=== PATIENT | female | born 1950 | race African-American/Black ===

== ENCOUNTER 2021-05-09 15:29 | Inpatient (IN) ==
[2021-05-09 16:19] LABS: Basophils % 0.5 % (0.0-0.8); Eosinophils # 0.1 10*3/uL (0.0-0.87); Eosinophils % 0.6 % (0.00-10.9); Hemoglobin 11.6 GM/DL (12.0-16.0); Immature Granulocytes % 1.6 %; Immature Granulocytes Absolute 0.14 #; Lymphocytes # 1.2 10*3/uL (1.4-4.0); Lymphocytes % 13.7 % (21.3-54.2); Mean Corpuscular HGB Conc 31.4 GM/DL (32-36); Mean Corpuscular Volume 91.4 FL (87-102); Mean Platelet Volume 10.7 FL (9.6-12.0); Monocytes % 6.7 % (1.7-12.7); Neutrophils % 76.9 % (38.7-73.9); Platelet Count 358 T/CUMM (130-400); Red Blood Count 4.05 MC/CUMM (3.8-5.5); Red Cell Distribution Width 14.2 % (9.3-17.3); White Blood Count 8.9 T/CUMM (4-12)
[2021-05-09 16:35] LABS: Alanine Aminotransferase 51 U/L (13-56); Albumin 2.2 G/DL (3.4-5.0); Alkaline Phosphatase 115 U/L (45-117); Aspartate Amino Transferase 61 U/L (0-37); Blood Urea Nitrogen 7 MG/DL (7-18); Calcium 8.9 MG/DL (8.5-10.1); Carbon Dioxide 26 MMOL/L (21-32); Estimated Glom Filtration Rate 84 ML/MIN; Glucose 134 MG/DL (74-106); Sodium 150 MMOL/L (136-145)
[2021-05-09 17:16] LABS: Bacteria,Urine Many /HPF (Few); Bilirubin,Urine Negative (Negative); Blood, Urine Small mg/dL (Negative); Glucose,Urine (UA) Negative (Negative); Hyaline Casts,Urine 18 /LPF (0-3); Ketones,Urine Negative (Negative); Mucus,Urine Many /LPF (Occasional); Nitrite,Urine Positive (Negative); Protein,Urine 30 MG/DL; RBC,Urine 5 /HPF (0-4); Urine Appearance CLOUDY (Clear); Urine Color Amber (Yellow); Urine Specific Gravity 1.019 (1.001-1.035); Urine Urobilinogen < 2.0 EU/DL (0.2-1.0)
[2021-05-09] MEDS ORDERED: SODIUM CHLORIDE 0.9% 1,850 ML IV ONE (17:34)
[2021-05-09] MEDS ORDERED: VANCOMYCIN INJ 1,000 MG in SODIUM CHLORIDE 0.9% 250 ML IV SCH (18:00)
[2021-05-09] MEDS ORDERED: GLUCAGON 1 MG VIAL IM PRN (18:08)
[2021-05-09] MEDS ORDERED: DEXTROSE 50% 25 GM/50 ML VIAL IV PRN (18:08)
[2021-05-09] MEDS ORDERED: ACETAMINOPHEN 325 MG TABLET PO PRN (18:08)
[2021-05-09] MEDS ORDERED: hydrALAZINE 20 MG/1 ML VIAL IV PRN (18:08)
[2021-05-09] MEDS ORDERED: DOCUSATE SODIUM 100 MG CAPSULE PO PRN (18:08)
[2021-05-09] MEDS ORDERED: ALBUTEROL 2.5 MG/3 ML NEB RESP TX PRN (18:08)
[2021-05-09] MEDS ORDERED: ONDANSETRON 4 MG/2 ML VIAL IV PRN (18:08)
[2021-05-09] MEDS: VANCOMYCIN INJ 1,000 MG in SODIUM CHLORIDE 0.9% 250 ML IV SCH (18:10)
[2021-05-09] MEDS ORDERED: MAGNESIUM SULF RIDER 2 GM/50 ML PREMIX IV PRN (18:19)
[2021-05-09] MEDS ORDERED: MAGNESIUM SULF RIDER 4 GM/100 ML PREMIX IV PRN (18:19)
[2021-05-09] MEDS ORDERED: POTASSIUM CHLORIDE INJ 20 MEQ in SODIUM CHLORIDE 0.45% 1,000 ML IV SCH (18:30)
[2021-05-09] MEDS: PIPERACILLIN/TAZOBACTAM 3,375 MG in SODIUM CHLORIDE 0.9% 100 ML IV SCH (19:42)
[2021-05-09] MEDS: ATORVASTATIN 40 MG TABLET PO SCH (21:04)
[2021-05-09] MEDS: MEMANTINE 10 MG TABLET PO SCH (21:04)
[2021-05-10] MEDS ORDERED: SODIUM CHLOR 0.45% KCL 20 MEQ 20 MEQ/1,000 ML BAG IV SCH (02:30)
[2021-05-10] MEDS: PIPERACILLIN/TAZOBACTAM 3,375 MG in SODIUM CHLORIDE 0.9% 100 ML IV SCH ×3 (04:16→18:28)
[2021-05-10 04:20] LABS: Basophils % 0.3 % (0.0-0.8); Eosinophils # 0.1 10*3/uL (0.0-0.87); Eosinophils % 1.8 % (0.00-10.9); Hematocrit 31.7 VOL% (35.7-47.0); Immature Granulocytes % 1.7 %; Lymphocytes # 1.2 10*3/uL (1.4-4.0); Lymphocytes % 19.2 % (21.3-54.2); Mean Corpuscular HGB Conc 31.5 GM/DL (32-36); Mean Corpuscular Volume 91.4 FL (87-102); Mean Platelet Volume 10.1 FL (9.6-12.0); Platelet Count 304 T/CUMM (130-400); Red Blood Count 3.47 MC/CUMM (3.8-5.5); Red Cell Distribution Width 14.5 % (9.3-17.3)
[2021-05-10 04:45] LABS: Calcium 7.9 MG/DL (8.5-10.1); Osmolality,Calculated 301.4 MOS/KG (273-304); Potassium 3.2 MMOL/L (3.5-5.1)
[2021-05-10 05:27] LABS: Risk Ratio 3.47; Thyroid Stimulating Hormone 1.04 uIU/ml (0.358-3.74); VLDL Cholesterol 15.6 MG/DL
[2021-05-10] MEDS: VANCOMYCIN INJ 1,000 MG in SODIUM CHLORIDE 0.9% 250 ML IV SCH ×2 (06:00→17:19)
[2021-05-10] MEDS ORDERED: POTASSIUM CHLORIDE INJ 30 MEQ in DEXTROSE 5% LACTATED RINGERS 1,000 ML IV SCH (07:00)
[2021-05-10] MEDS: DEXTROSE 5% 1,000 ML IV SCH (10:26)
[2021-05-10] MEDS: MEMANTINE 10 MG TABLET PO SCH ×2 (11:00→20:24)
[2021-05-10] MEDS: PANTOPRAZOLE 40 MG TABLET PO SCH (11:00)
[2021-05-10 13:38] LABS: Calcium 8.6 MG/DL (8.5-10.1); Potassium 3.1 MMOL/L (3.5-5.1)
[2021-05-10] MEDS: SILVER SULFADIAZINE 1% CREAM 25 GM TUBE TOP SCH (14:47)
[2021-05-10 19:14] LABS: Calcium 8.5 MG/DL (8.5-10.1); Osmolality,Calculated 288.4 MOS/KG (273-304)
[2021-05-10] MEDS: ATORVASTATIN 40 MG TABLET PO SCH (20:25)
[2021-05-11 01:21] LABS: Basophils % 0.3 % (0.0-0.8); Eosinophils # 0.1 10*3/uL (0.0-0.87); Eosinophils % 1.4 % (0.00-10.9); Hematocrit 32.4 VOL% (35.7-47.0); Hemoglobin 10.1 GM/DL (12.0-16.0); Immature Granulocytes Absolute 0.15 #; Lymphocytes # 1.3 10*3/uL (1.4-4.0); Lymphocytes % 17.3 % (21.3-54.2); Mean Corpuscular HGB Conc 31.2 GM/DL (32-36); Mean Corpuscular Volume 90.5 FL (87-102); Monocytes % 6.2 % (1.7-12.7); Neutrophils % 72.8 % (38.7-73.9); Platelet Count 312 T/CUMM (130-400); Red Blood Count 3.58 MC/CUMM (3.8-5.5); Red Cell Distribution Width 14.3 % (9.3-17.3); White Blood Count 7.6 T/CUMM (4-12)
[2021-05-11 01:49] LABS: Calcium 8.3 MG/DL (8.5-10.1); Osmolality,Calculated 285.7 MOS/KG (273-304); Potassium 2.7 MMOL/L (3.5-5.1)
[2021-05-11] MEDS: PIPERACILLIN/TAZOBACTAM 3,375 MG in SODIUM CHLORIDE 0.9% 100 ML IV SCH ×2 (02:09→10:06)
[2021-05-11] MEDS: DEXTROSE 5% 1,000 ML IV SCH ×2 (05:56→10:06)
[2021-05-11] MEDS: VANCOMYCIN INJ 1,000 MG in SODIUM CHLORIDE 0.9% 250 ML IV SCH (06:19)
[2021-05-11 07:45] LABS: Calcium 8.2 MG/DL (8.5-10.1); Osmolality,Calculated 288.4 MOS/KG (273-304); Potassium 2.8 MMOL/L (3.5-5.1)
[2021-05-11] MEDS: MEMANTINE 10 MG TABLET PO SCH (08:18)
[2021-05-11] MEDS: PANTOPRAZOLE 40 MG TABLET PO SCH (08:18)
[2021-05-11] MEDS: SILVER SULFADIAZINE 1% CREAM 25 GM TUBE TOP SCH (08:42)
[2021-05-11] MEDS ORDERED: POTASSIUM CHLORIDE 20 MEQ TABLET PO ONE ×2 (09:00→11:00)
[2021-05-11 15:34] VITALS: BP 115/59
[2021-05-11] MEDS ORDERED: cefTRIAXone 1,000 MG in SODIUM CHLORIDE 0.9% 100 ML IV SCH (17:00)
[2021-05-11] MEDS ORDERED: CIPROFLOXACIN 500 MG TABLET PO SCH (21:00)
== END 2021-05-11 15:50 | DRG 299 ==
LOC: EDUNIT# → EDBD → N.ED 15:29 → N.EDINP 18:08 → SUATTDRO 18:08 → N.EDINP 05-10 08:45 → N.5E 05-10 09:31
PROVIDERS: ADMIT Internal Medicine; ATTEND Internal Medicine

== ENCOUNTER 2021-05-26 09:06 | Inpatient (IN) ==
[2021-05-26 10:08] LABS: Basophils # 0.1 10*3/uL (0.0-0.2); Basophils % 0.8 % (0.0-0.8); Eosinophils % 0.2 % (0.00-10.9); Hematocrit 42.1 VOL% (35.7-47.0); Hemoglobin 12.7 GM/DL (12.0-16.0); Immature Granulocytes % 6.2 %; Immature Granulocytes Absolute 0.69 #; Lymphocytes # 2.5 10*3/uL (1.4-4.0); Lymphocytes % 22.5 % (21.3-54.2); Mean Corpuscular HGB Conc 30.2 GM/DL (32-36); Mean Corpuscular Volume 91.7 FL (87-102); Mean Platelet Volume 11.4 FL (9.6-12.0); Monocytes % 5.3 % (1.7-12.7); NRBC # 0.12 10*3/uL; Platelet Count 422 T/CUMM (130-400); Red Blood Count 4.59 MC/CUMM (3.8-5.5); Red Cell Distribution Width 15.9 % (9.3-17.3); White Blood Count 11.2 T/CUMM (4-12)
[2021-05-26 10:27] LABS: Band Neutrophils 3 % (0-10); Lymphocytes 20 % (20-55); Myelocytes 2 %; Nucleated Red Blood Cells 1 (0-5); Platelet Estimate Adequate; Segmented Neutrophils 68 % (50-85); Total Cells Counted 100
[2021-05-26 10:47] LABS: Bilirubin,Urine Small mg/dL (Negative); Blood, Urine Negative (Negative); Glucose,Urine (UA) Negative (Negative); Hyaline Casts,Urine 15 /LPF (0-3); Ketones,Urine Negative (Negative); Mucus,Urine Few /LPF (Occasional); Nitrite,Urine Negative (Negative); Protein,Urine 30 MG/DL; RBC,Urine 4 /HPF (0-4); Squamous Epithelial Cell,Urine Occasional /HPF (0-10); Urine Appearance Slightly Hazy (Clear); Urine Color Amber (Yellow); Urine Specific Gravity 1.027 (1.001-1.035); Urine Urobilinogen < 2.0 EU/DL (0.2-1.0)
[2021-05-26] MEDS ORDERED: SODIUM CHLORIDE 0.9% 1,000 ML IV STA (12:07)
[2021-05-26] MEDS ORDERED: cefTRIAXone 1,000 MG in SODIUM CHLORIDE 0.9% 100 ML IV STA (12:21)
[2021-05-26 13:28] LABS: Alanine Aminotransferase 17 U/L (13-56); Albumin 2.1 G/DL (3.4-5.0); Alkaline Phosphatase 123 U/L (45-117); Aspartate Amino Transferase 43 U/L (0-37); Bilirubin,Total < 0.39 MG/DL (0.20-1.00); Blood Urea Nitrogen 38 MG/DL (7-18); Calcium 8.4 MG/DL (8.5-10.1); Carbon Dioxide 23 MMOL/L (21-32); Estimated Glom Filtration Rate 34 ML/MIN; Glucose 120 MG/DL (74-106); Osmolality,Calculated 323.7 MOS/KG (273-304); Potassium 3.5 MMOL/L (3.5-5.1); Sodium 159 MMOL/L (136-145); Total Protein 5.9 G/DL (6.4-8.2)
[2021-05-26] MEDS ORDERED: GLUCAGON 1 MG VIAL IM PRN (13:45)
[2021-05-26] MEDS ORDERED: DEXTROSE 50% 25 GM/50 ML VIAL IV PRN (13:45)
[2021-05-26] MEDS ORDERED: ONDANSETRON 4 MG/2 ML VIAL IV PRN (13:45)
[2021-05-26] MEDS ORDERED: LACTATED RINGERS 1,000 ML IV SCH (14:00)
[2021-05-26 14:12] LABS: Folate 7.74 NG/ML (5.38-24.0)
[2021-05-26] MEDS: DEXTROSE 5% 1,000 ML IV SCH (16:23)
[2021-05-26] MEDS: MEMANTINE 5 MG TABLET PO SCH (22:16)
[2021-05-27] MEDS: DEXTROSE 5% 1,000 ML IV SCH ×3 (00:53→19:25)
[2021-05-27 02:43] LABS: Basophils # 0.1 10*3/uL (0.0-0.2); Basophils % 0.9 % (0.0-0.8); Eosinophils # 0.1 10*3/uL (0.0-0.87); Eosinophils % 1.2 % (0.00-10.9); Hematocrit 36.3 VOL% (35.7-47.0); Immature Granulocytes % 7.1 %; Lymphocytes # 1.9 10*3/uL (1.4-4.0); Lymphocytes % 19.6 % (21.3-54.2); Mean Corpuscular HGB Conc 29.8 GM/DL (32-36); Mean Corpuscular Volume 92.6 FL (87-102); Mean Platelet Volume 11.1 FL (9.6-12.0); Monocytes % 3.8 % (1.7-12.7); NRBC # 0.05 10*3/uL; Neutrophils % 67.4 % (38.7-73.9); Red Blood Count 3.92 MC/CUMM (3.8-5.5); Red Cell Distribution Width 15.9 % (9.3-17.3); White Blood Count 9.8 T/CUMM (4-12)
[2021-05-27 02:45] LABS: Hemoglobin 10.8 GM/DL (12.0-16.0); Platelet Count 293 T/CUMM (130-400)
[2021-05-27 03:08] LABS: Alanine Aminotransferase 17 U/L (13-56); Albumin 1.7 G/DL (3.4-5.0); Alkaline Phosphatase 100 U/L (45-117); Aspartate Amino Transferase 40 U/L (0-37); Bilirubin,Total < 0.39 MG/DL (0.20-1.00); Blood Urea Nitrogen 32 MG/DL (7-18); Calcium 7.9 MG/DL (8.5-10.1); Carbon Dioxide 23 MMOL/L (21-32); Estimated Glom Filtration Rate 52 ML/MIN; Glucose 161 MG/DL (74-106); Osmolality,Calculated 321.9 MOS/KG (273-304); Potassium 3.1 MMOL/L (3.5-5.1); Sodium 158 MMOL/L (136-145); Thyroid Stimulating Hormone 0.778 uIU/ml (0.358-3.74); Total Protein 5.6 G/DL (6.4-8.2)
[2021-05-27 04:07] LABS: Atypical Lymphocytes Few; Band Neutrophils 4 % (0-10); Eosinophils 1 % (0-10); Lymphocytes 20 % (20-55); Segmented Neutrophils 71 % (50-85); Total Cells Counted 100
[2021-05-27 04:08] LABS: Hypochromasia 1+; Microcytosis 1+; Platelet Estimate Normal
[2021-05-27 07:24] LABS: Basophils % 0.4 % (0.0-0.8); Eosinophils # 0.1 10*3/uL (0.0-0.87); Eosinophils % 1.1 % (0.00-10.9); Hematocrit 34.7 VOL% (35.7-47.0); Hemoglobin 10.4 GM/DL (12.0-16.0); Immature Granulocytes % 8.2 %; Immature Granulocytes Absolute 0.81 #; Lymphocytes # 1.4 10*3/uL (1.4-4.0); Lymphocytes % 14.1 % (21.3-54.2); Mean Platelet Volume 11.4 FL (9.6-12.0); NRBC # 0.05 10*3/uL; Neutrophils % 73.2 % (38.7-73.9); Platelet Count 284 T/CUMM (130-400); Red Blood Count 3.77 MC/CUMM (3.8-5.5); Red Cell Distribution Width 15.8 % (9.3-17.3); White Blood Count 9.9 T/CUMM (4-12)
[2021-05-27 07:49] LABS: Band Neutrophils 7 % (0-10); Eosinophils 1 % (0-10); Hypochromasia 1+; Lymphocytes 15 % (20-55); Microcytosis 1+; Nucleated Red Blood Cells 2 (0-5); Segmented Neutrophils 73 % (50-85); Total Cells Counted 100
[2021-05-27 07:50] LABS: Platelet Estimate Normal
[2021-05-27] MEDS ORDERED: cefTRIAXone 1,000 MG in SODIUM CHLORIDE 0.9% 100 ML IV SCH (09:00)
[2021-05-27] MEDS: MEMANTINE 5 MG TABLET PO SCH ×2 (09:37→20:29)
[2021-05-27] MEDS: POTASSIUM CHLORIDE RIDER 10 MEQ/100 ML PREMIX IV PRN ×8 (09:39→23:19)
[2021-05-28] MEDS: DEXTROSE 5% 1,000 ML IV SCH (03:19)
[2021-05-28] MEDS: POTASSIUM CHLORIDE RIDER 10 MEQ/100 ML PREMIX IV PRN ×2 (03:25→04:42)
[2021-05-28 06:13] LABS: Albumin 1.5 G/DL (3.4-5.0); Bilirubin,Total 0.4 MG/DL (0.20-1.00); Calcium 7.6 MG/DL (8.5-10.1); Osmolality,Calculated 275.8 MOS/KG (273-304); Potassium 4.1 MMOL/L (3.5-5.1); Total Protein 4.9 G/DL (6.4-8.2)
[2021-05-28] MEDS ORDERED: VANCOMYCIN INJ 1,250 MG in SODIUM CHLORIDE 0.9% 250 ML IV ONE (09:00)
[2021-05-28] MEDS ORDERED: VANCOMYCIN INJ 1,000 MG in SODIUM CHLORIDE 0.9% 250 ML IV SCH (09:00)
[2021-05-28] MEDS: MEMANTINE 5 MG TABLET PO SCH ×2 (09:37→21:26)
[2021-05-28] MEDS: PIPERACILLIN/TAZOBACTAM 3,375 MG in SODIUM CHLORIDE 0.9% 100 ML IV SCH ×2 (11:00→16:54)
[2021-05-28] MEDS: VANCOMYCIN INJ 750 MG in SODIUM CHLORIDE 0.9% 250 ML IV SCH (21:26)
[2021-05-29] MEDS: PIPERACILLIN/TAZOBACTAM 3,375 MG in SODIUM CHLORIDE 0.9% 100 ML IV SCH (01:27)
[2021-05-29 01:43] LABS: Basophils # 0.1 10*3/uL (0.0-0.2); Basophils % 0.7 % (0.0-0.8); Eosinophils # 0.1 10*3/uL (0.0-0.87); Eosinophils % 0.8 % (0.00-10.9); Hematocrit 31.5 VOL% (35.7-47.0); Hemoglobin 9.7 GM/DL (12.0-16.0); Immature Granulocytes % 7.9 %; Immature Granulocytes Absolute 0.93 #; Lymphocytes # 1.7 10*3/uL (1.4-4.0); Lymphocytes % 14.6 % (21.3-54.2); Mean Corpuscular HGB Conc 30.8 GM/DL (32-36); Mean Platelet Volume 10.6 FL (9.6-12.0); Monocytes % 2.1 % (1.7-12.7); NRBC # 0.05 10*3/uL; Neutrophils % 73.9 % (38.7-73.9); Platelet Count 232 T/CUMM (130-400); Red Blood Count 3.54 MC/CUMM (3.8-5.5); Red Cell Distribution Width 15.4 % (9.3-17.3); White Blood Count 11.8 T/CUMM (4-12)
[2021-05-29 02:04] LABS: Albumin 1.5 G/DL (3.4-5.0); Bilirubin,Total 0.4 MG/DL (0.20-1.00); Calcium 7.8 MG/DL (8.5-10.1); Osmolality,Calculated 281.3 MOS/KG (273-304); Potassium 3.3 MMOL/L (3.5-5.1); Total Protein 4.9 G/DL (6.4-8.2)
[2021-05-29] MEDS: POTASSIUM CHLORIDE RIDER 10 MEQ/100 ML PREMIX IV PRN ×4 (02:19→05:13)
[2021-05-29 03:57] LABS: Lymphocytes 14 % (20-55); Nucleated Red Blood Cells 3 (0-5); Segmented Neutrophils 84 % (50-85); Total Cells Counted 100
[2021-05-29 03:58] LABS: Hypochromasia 1+; Microcytosis 1+; Platelet Estimate Normal
[2021-05-29] MEDS: DEXTROSE 5% 1,000 ML IV SCH (06:31)
[2021-05-29] MEDS ORDERED: POTASSIUM BICARB EFFERVESCENT 20 MEQ TAB.EFF PO ONE (08:00)
[2021-05-29] MEDS: MEMANTINE 5 MG TABLET PO SCH ×2 (09:18→20:57)
[2021-05-29] MEDS: VANCOMYCIN INJ 750 MG in SODIUM CHLORIDE 0.9% 250 ML IV SCH ×2 (09:20→21:00)
[2021-05-29] MEDS: ERTAPENEM 1,000 MG in SODIUM CHLORIDE 0.9% 100 ML IV SCH (10:29)
[2021-05-29] MEDS: SILVER SULFADIAZINE 1% CREAM 25 GM TUBE TOP SCH (14:57)
[2021-05-29] MEDS: SODIUM HYPOCHLORITE 0.25% IRRIG 473 ML BOTTLE TOP SCH (14:57)
[2021-05-29] MEDS ORDERED: ATORVASTATIN 40 MG TABLET PO SCH (21:00)
[2021-05-30 06:16] LABS: Basophils % 0.4 % (0.0-0.8); Eosinophils # 0.1 10*3/uL (0.0-0.87); Eosinophils % 1.3 % (0.00-10.9); Hematocrit 31.9 VOL% (35.7-47.0); Hemoglobin 9.5 GM/DL (12.0-16.0); Immature Granulocytes Absolute 0.67 #; Lymphocytes # 1.3 10*3/uL (1.4-4.0); Mean Corpuscular HGB Conc 29.8 GM/DL (32-36); Mean Corpuscular Volume 90.4 FL (87-102); Mean Platelet Volume 11.1 FL (9.6-12.0); Monocytes % 2.9 % (1.7-12.7); NRBC # 0.02 10*3/uL; Neutrophils % 71.4 % (38.7-73.9); Platelet Count 230 T/CUMM (130-400); Red Blood Count 3.53 MC/CUMM (3.8-5.5); Red Cell Distribution Width 15.4 % (9.3-17.3); White Blood Count 8.4 T/CUMM (4-12)
[2021-05-30 06:41] LABS: Hypochromasia 1+; Lymphocytes 12 % (20-55); Microcytosis 1+; Platelet Estimate Adequate; Segmented Neutrophils 86 % (50-85); Total Cells Counted 100
[2021-05-30 06:47] LABS: Calcium 8.2 MG/DL (8.5-10.1); Osmolality,Calculated 279.1 MOS/KG (273-304); Potassium 3.3 MMOL/L (3.5-5.1)
[2021-05-30 07:11] LABS: Risk Ratio 4.36; VLDL Cholesterol 23.6 MG/DL
[2021-05-30] MEDS: POTASSIUM CHLORIDE RIDER 10 MEQ/100 ML PREMIX IV PRN ×4 (07:20→15:12)
[2021-05-30] MEDS ORDERED: SODIUM HYPOCHLORITE 0.25% IRR 1 APPLIC in IV BAG 1 EACH IRRIG PRN (09:15)
[2021-05-30] MEDS: SILVER SULFADIAZINE 1% CREAM 25 GM TUBE TOP SCH (10:01)
[2021-05-30] MEDS: MEMANTINE 5 MG TABLET PO SCH ×2 (10:01→22:24)
[2021-05-30] MEDS: SODIUM HYPOCHLORITE 0.25% IRRIG 473 ML BOTTLE TOP SCH (10:01)
[2021-05-30] MEDS: VANCOMYCIN INJ 750 MG in SODIUM CHLORIDE 0.9% 250 ML IV SCH ×2 (10:01→22:25)
[2021-05-30] MEDS: ERTAPENEM 1,000 MG in SODIUM CHLORIDE 0.9% 100 ML IV SCH (11:19)
[2021-05-31 06:08] LABS: Basophils # 0.1 10*3/uL (0.0-0.2); Basophils % 0.7 % (0.0-0.8); Eosinophils # 0.1 10*3/uL (0.0-0.87); Eosinophils % 2.1 % (0.00-10.9); Hematocrit 28.8 VOL% (35.7-47.0); Hemoglobin 8.7 GM/DL (12.0-16.0); Immature Granulocytes % 8.9 %; Lymphocytes # 1.6 10*3/uL (1.4-4.0); Lymphocytes % 23.3 % (21.3-54.2); Mean Corpuscular HGB Conc 30.2 GM/DL (32-36); Mean Corpuscular Volume 90.9 FL (87-102); Monocytes % 4.2 % (1.7-12.7); Neutrophils % 60.8 % (38.7-73.9); Platelet Count 237 T/CUMM (130-400); Red Blood Count 3.17 MC/CUMM (3.8-5.5); Red Cell Distribution Width 15.6 % (9.3-17.3); White Blood Count 6.7 T/CUMM (4-12)
[2021-05-31 06:28] LABS: Osmolality,Calculated 288.4 MOS/KG (273-304); Potassium 3.7 MMOL/L (3.5-5.1)
[2021-05-31 06:35] LABS: Hypochromasia 1+; Lymphocytes 20 % (20-55); Microcytosis 1+; Platelet Estimate Adequate; Segmented Neutrophils 78 % (50-85); Total Cells Counted 100
[2021-05-31] MEDS: SODIUM BICARB INJ 100 MEQ in DEXTROSE 5% 1,000 ML IV SCH (10:05)
[2021-05-31] MEDS: VANCOMYCIN INJ 750 MG in SODIUM CHLORIDE 0.9% 250 ML IV SCH (10:23)
[2021-05-31] MEDS: ERTAPENEM 1,000 MG in SODIUM CHLORIDE 0.9% 100 ML IV SCH (10:40)
[2021-05-31] MEDS: MEMANTINE 5 MG TABLET PO SCH (10:59)
[2021-05-31] MEDS: SODIUM HYPOCHLORITE 0.25% IRRIG 473 ML BOTTLE TOP SCH (12:19)
[2021-05-31] MEDS: SILVER SULFADIAZINE 1% CREAM 25 GM TUBE TOP SCH (12:19)
[2021-05-31] MEDS: POTASSIUM CHLORIDE RIDER 10 MEQ/100 ML PREMIX IV PRN ×2 (13:12→16:35)
[2021-06-01] MEDS: SODIUM BICARB INJ 100 MEQ in DEXTROSE 5% 1,000 ML IV SCH (01:32)
[2021-06-01] MEDS: MEMANTINE 5 MG TABLET PO SCH ×3 (03:18→21:00)
[2021-06-01 06:08] LABS: Basophils % 0.7 % (0.0-0.8); Eosinophils # 0.2 10*3/uL (0.0-0.87); Eosinophils % 3.8 % (0.00-10.9); Hematocrit 26.9 VOL% (35.7-47.0); Hemoglobin 8.4 GM/DL (12.0-16.0); Immature Granulocytes % 9.2 %; Immature Granulocytes Absolute 0.56 #; Lymphocytes # 1.3 10*3/uL (1.4-4.0); Lymphocytes % 20.6 % (21.3-54.2); Mean Corpuscular HGB Conc 31.2 GM/DL (32-36); Mean Corpuscular Volume 88.8 FL (87-102); Mean Platelet Volume 10.6 FL (9.6-12.0); Monocytes % 4.8 % (1.7-12.7); Neutrophils % 60.9 % (38.7-73.9); Platelet Count 228 T/CUMM (130-400); Red Blood Count 3.03 MC/CUMM (3.8-5.5); Red Cell Distribution Width 15.3 % (9.3-17.3); White Blood Count 6.1 T/CUMM (4-12)
[2021-06-01 06:24] LABS: Calcium 7.7 MG/DL (8.5-10.1); Osmolality,Calculated 289.4 MOS/KG (273-304); Potassium 3.2 MMOL/L (3.5-5.1)
[2021-06-01 06:37] LABS: Eosinophils 2 % (0-10); Hypochromasia 1+; Lymphocytes 16 % (20-55); Microcytosis 1+; Platelet Estimate Adequate; Segmented Neutrophils 77 % (50-85); Total Cells Counted 100
[2021-06-01] MEDS: ERTAPENEM 1,000 MG in SODIUM CHLORIDE 0.9% 100 ML IV SCH (09:32)
[2021-06-01] MEDS: SODIUM HYPOCHLORITE 0.25% IRRIG 473 ML BOTTLE TOP SCH (09:35)
[2021-06-01] MEDS: SILVER SULFADIAZINE 1% CREAM 25 GM TUBE TOP SCH (09:35)
[2021-06-01] MEDS: DEXTROSE 5% 1,000 ML IV SCH (09:36)
[2021-06-01] MEDS: POTASSIUM CHLORIDE RIDER 10 MEQ/100 ML PREMIX IV PRN ×4 (10:41→14:57)
[2021-06-02 06:06] LABS: Basophils % 0.6 % (0.0-0.8); Eosinophils # 0.2 10*3/uL (0.0-0.87); Eosinophils % 3.9 % (0.00-10.9); Hematocrit 26.4 VOL% (35.7-47.0); Immature Granulocytes % 10.4 %; Immature Granulocytes Absolute 0.53 #; Lymphocytes # 1.4 10*3/uL (1.4-4.0); Mean Corpuscular HGB Conc 30.3 GM/DL (32-36); Mean Corpuscular Volume 90.4 FL (87-102); Mean Platelet Volume 10.7 FL (9.6-12.0); Monocytes % 5.9 % (1.7-12.7); NRBC # 0.03 10*3/uL; Neutrophils % 52.2 % (38.7-73.9); Platelet Count 220 T/CUMM (130-400); Red Blood Count 2.92 MC/CUMM (3.8-5.5); Red Cell Distribution Width 15.6 % (9.3-17.3); White Blood Count 5.1 T/CUMM (4-12)
[2021-06-02 06:12] LABS: INR 1.1; PT Patient Result 12.2 SECS (10.5-12.0)
[2021-06-02 06:28] LABS: Eosinophils 5 % (0-10); Lymphocytes 33 % (20-55); Segmented Neutrophils 55 % (50-85); Total Cells Counted 100
[2021-06-02 06:29] LABS: Hypochromasia 1+; Microcytosis 1+; Platelet Estimate Adequate
[2021-06-02 06:33] LABS: Calcium 7.7 MG/DL (8.5-10.1); Osmolality,Calculated 277.3 MOS/KG (273-304); Potassium 3.4 MMOL/L (3.5-5.1)
[2021-06-02] MEDS: POTASSIUM CHLORIDE RIDER 10 MEQ/100 ML PREMIX IV SCH ×2 (09:21→11:10)
[2021-06-02] MEDS: DEXTROSE 5% 1,000 ML IV SCH (09:21)
[2021-06-02] MEDS: SILVER SULFADIAZINE 1% CREAM 25 GM TUBE TOP SCH (09:22)
[2021-06-02] MEDS: SODIUM HYPOCHLORITE 0.25% IRRIG 473 ML BOTTLE TOP SCH (09:22)
[2021-06-02] MEDS: MEMANTINE 5 MG TABLET PO SCH ×2 (10:02→22:59)
[2021-06-02] MEDS: DEXTROSE 5% NACL 0.45% 1,000 ML IV SCH (11:09)
[2021-06-02] MEDS: ERTAPENEM 1,000 MG in SODIUM CHLORIDE 0.9% 100 ML IV SCH (11:10)
[2021-06-02] MEDS: LACTATED RINGERS 1,000 ML IV SCH (11:40)
[2021-06-02] MEDS ORDERED: LIDOCAINE 2% 5 ML VIAL ONE (11:59)
[2021-06-02] MEDS ORDERED: ETOMIDATE 20 MG/10 ML VIAL IV ONE (11:59)
[2021-06-02] MEDS ORDERED: propofoL 200 MG/20 ML VIAL IV ONE (12:07)
[2021-06-02] MEDS: AMOXICILLIN 50 MG/ML 150 ML/BOTTLE PO SCH ×2 (15:18→22:59)
[2021-06-03] MEDS: AMOXICILLIN 50 MG/ML 150 ML/BOTTLE PO SCH ×3 (05:30→21:53)
[2021-06-03 06:01] LABS: Basophils # 0.1 10*3/uL (0.0-0.2); Basophils % 0.7 % (0.0-0.8); Eosinophils # 0.1 10*3/uL (0.0-0.87); Eosinophils % 1.8 % (0.00-10.9); Hematocrit 28.3 VOL% (35.7-47.0); Hemoglobin 8.7 GM/DL (12.0-16.0); Lymphocytes # 1.5 10*3/uL (1.4-4.0); Lymphocytes % 21.7 % (21.3-54.2); Mean Corpuscular HGB Conc 30.7 GM/DL (32-36); Mean Corpuscular Volume 88.4 FL (87-102); Mean Platelet Volume 10.7 FL (9.6-12.0); NRBC # 0.02 10*3/uL; Neutrophils % 60.8 % (38.7-73.9); Platelet Count 242 T/CUMM (130-400); Red Cell Distribution Width 15.7 % (9.3-17.3); White Blood Count 6.7 T/CUMM (4-12)
[2021-06-03 06:27] LABS: Calcium 7.7 MG/DL (8.5-10.1); Osmolality,Calculated 277.3 MOS/KG (273-304); Potassium 3.4 MMOL/L (3.5-5.1)
[2021-06-03] MEDS: POTASSIUM CHLORIDE RIDER 10 MEQ/100 ML PREMIX IV PRN (07:09)
[2021-06-03] MEDS ORDERED: MAGNESIUM SULF RIDER 2 GM/50 ML PREMIX IV ONE (08:08)
[2021-06-03 09:35] LABS: Band Neutrophils 2 % (0-10); Hypochromasia 1+; Lymphocytes 17 % (20-55); Platelet Estimate Normal; Polychromasia Slight; Segmented Neutrophils 64 % (50-85); Total Cells Counted 100
[2021-06-03] MEDS: SILVER SULFADIAZINE 1% CREAM 25 GM TUBE TOP SCH (09:57)
[2021-06-03] MEDS: DEXTROSE 5% NACL 0.45% 1,000 ML IV SCH (10:04)
[2021-06-03] MEDS: LACTATED RINGERS 1,000 ML IV SCH (10:13)
[2021-06-03] MEDS: SODIUM HYPOCHLORITE 0.25% IRRIG 473 ML BOTTLE TOP SCH (10:15)
[2021-06-03] MEDS: ERTAPENEM 1,000 MG in SODIUM CHLORIDE 0.9% 100 ML IV SCH (12:04)
[2021-06-03] MEDS: PANTOPRAZOLE 40 MG TABLET PO SCH (13:49)
[2021-06-03] MEDS: MEMANTINE 5 MG TABLET PO SCH ×2 (14:33→21:53)
[2021-06-03] MEDS: POTASSIUM CHLORIDE 20 MEQ PACK PO SCH ×2 (14:33→21:52)
[2021-06-04] MEDS: AMOXICILLIN 50 MG/ML 150 ML/BOTTLE PO SCH ×3 (06:09→21:33)
[2021-06-04 06:27] LABS: Calcium 7.6 MG/DL (8.5-10.1); Osmolality,Calculated 272.8 MOS/KG (273-304); Potassium 4.3 MMOL/L (3.5-5.1)
[2021-06-04 06:32] LABS: Basophils % 0.3 % (0.0-0.8); Eosinophils # 0.1 10*3/uL (0.0-0.87); Eosinophils % 0.7 % (0.00-10.9); Hematocrit 27.2 VOL% (35.7-47.0); Hemoglobin 8.3 GM/DL (12.0-16.0); Immature Granulocytes % 5.7 %; Immature Granulocytes Absolute 0.57 #; Lymphocytes # 1.5 10*3/uL (1.4-4.0); Lymphocytes % 14.6 % (21.3-54.2); Mean Corpuscular HGB Conc 30.5 GM/DL (32-36); Mean Corpuscular Volume 90.1 FL (87-102); Mean Platelet Volume 10.9 FL (9.6-12.0); Monocytes % 4.8 % (1.7-12.7); NRBC # 0.02 10*3/uL; Neutrophils % 73.9 % (38.7-73.9); Platelet Count 299 T/CUMM (130-400); Red Blood Count 3.02 MC/CUMM (3.8-5.5); Red Cell Distribution Width 16.1 % (9.3-17.3); White Blood Count 9.9 T/CUMM (4-12)
[2021-06-04] MEDS: ERTAPENEM 1,000 MG in SODIUM CHLORIDE 0.9% 100 ML IV SCH ×2 (10:06→13:25)
[2021-06-04] MEDS: POTASSIUM CHLORIDE 20 MEQ PACK PO SCH ×2 (10:07→21:34)
[2021-06-04] MEDS: MEMANTINE 5 MG TABLET PO SCH ×2 (10:07→21:34)
[2021-06-04] MEDS: SILVER SULFADIAZINE 1% CREAM 25 GM TUBE TOP SCH (10:08)
[2021-06-04] MEDS: SODIUM HYPOCHLORITE 0.25% IRRIG 473 ML BOTTLE TOP SCH (10:35)
[2021-06-04] MEDS: PANTOPRAZOLE 40 MG TABLET PO SCH (10:35)
[2021-06-04] MEDS: DEXTROSE 5% NACL 0.45% 1,000 ML IV SCH (10:36)
[2021-06-04 11:56] LABS: Hypochromasia 1+; Lymphocytes 12 % (20-55); Platelet Estimate Normal; Segmented Neutrophils 81 % (50-85); Total Cells Counted 100
[2021-06-05 05:17] LABS: Basophils # 0.1 10*3/uL (0.0-0.2); Basophils % 0.6 % (0.0-0.8); Eosinophils # 0.1 10*3/uL (0.0-0.87); Eosinophils % 1.4 % (0.00-10.9); Hematocrit 28.3 VOL% (35.7-47.0); Hemoglobin 8.7 GM/DL (12.0-16.0); Immature Granulocytes % 5.6 %; Immature Granulocytes Absolute 0.49 #; Lymphocytes # 1.6 10*3/uL (1.4-4.0); Lymphocytes % 18.1 % (21.3-54.2); Mean Corpuscular HGB Conc 30.7 GM/DL (32-36); Mean Corpuscular Volume 88.2 FL (87-102); Mean Platelet Volume 10.6 FL (9.6-12.0); Monocytes % 7.6 % (1.7-12.7); NRBC # 0.02 10*3/uL; Neutrophils % 66.7 % (38.7-73.9); Platelet Count 343 T/CUMM (130-400); Red Blood Count 3.21 MC/CUMM (3.8-5.5); Red Cell Distribution Width 16.1 % (9.3-17.3); White Blood Count 8.8 T/CUMM (4-12)
[2021-06-05 05:41] LABS: Calcium 7.9 MG/DL (8.5-10.1); Osmolality,Calculated 272.7 MOS/KG (273-304); Potassium 4.7 MMOL/L (3.5-5.1)
[2021-06-05 05:48] LABS: Eosinophils 4 % (0-10); Lymphocytes 14 % (20-55); Platelet Estimate Normal; Segmented Neutrophils 76 % (50-85); Total Cells Counted 100
[2021-06-05 05:49] LABS: Hypochromasia Slight
[2021-06-05] MEDS: AMOXICILLIN 50 MG/ML 150 ML/BOTTLE PO SCH ×3 (06:08→21:04)
[2021-06-05] MEDS: SODIUM HYPOCHLORITE 0.25% IRRIG 473 ML BOTTLE TOP SCH (09:00)
[2021-06-05] MEDS: MEMANTINE 5 MG TABLET PO SCH ×2 (10:39→21:04)
[2021-06-05] MEDS: PANTOPRAZOLE 40 MG TABLET PO SCH (10:39)
[2021-06-05] MEDS: POTASSIUM CHLORIDE 20 MEQ PACK PO SCH ×2 (10:40→21:04)
[2021-06-05] MEDS: SILVER SULFADIAZINE 1% CREAM 25 GM TUBE TOP SCH (10:40)
[2021-06-05] MEDS: ERTAPENEM 1,000 MG in SODIUM CHLORIDE 0.9% 100 ML IV SCH (12:04)
[2021-06-06] MEDS: AMOXICILLIN 50 MG/ML 150 ML/BOTTLE PO SCH ×3 (05:13→21:00)
[2021-06-06 06:43] LABS: Basophils % 0.5 % (0.0-0.8); Eosinophils # 0.2 10*3/uL (0.0-0.87); Eosinophils % 2.7 % (0.00-10.9); Hematocrit 26.2 VOL% (35.7-47.0); Hemoglobin 7.9 GM/DL (12.0-16.0); Immature Granulocytes Absolute 0.48 #; Lymphocytes # 1.5 10*3/uL (1.4-4.0); Lymphocytes % 19.1 % (21.3-54.2); Mean Corpuscular HGB Conc 30.2 GM/DL (32-36); Mean Corpuscular Volume 89.4 FL (87-102); NRBC # 0.03 10*3/uL; Neutrophils % 64.7 % (38.7-73.9); Platelet Count 371 T/CUMM (130-400); Red Blood Count 2.93 MC/CUMM (3.8-5.5); Red Cell Distribution Width 16.3 % (9.3-17.3)
[2021-06-06 07:05] LABS: Band Neutrophils 1 % (0-10); Eosinophils 2 % (0-10); Hypochromasia 1+; Lymphocytes 12 % (20-55); Microcytosis 1+; Platelet Estimate Adequate; Segmented Neutrophils 79 % (50-85); Total Cells Counted 100
[2021-06-06 07:17] LABS: Osmolality,Calculated 271.8 MOS/KG (273-304)
[2021-06-06] MEDS: SODIUM HYPOCHLORITE 0.25% IRRIG 473 ML BOTTLE TOP SCH (09:00)
[2021-06-06] MEDS: MEMANTINE 5 MG TABLET PO SCH ×2 (09:54→21:00)
[2021-06-06] MEDS: POTASSIUM CHLORIDE 20 MEQ PACK PO SCH ×2 (09:54→21:00)
[2021-06-06] MEDS: PANTOPRAZOLE 40 MG TABLET PO SCH (09:54)
[2021-06-06] MEDS: ERTAPENEM 1,000 MG in SODIUM CHLORIDE 0.9% 100 ML IV SCH (10:35)
[2021-06-06] MEDS: SILVER SULFADIAZINE 1% CREAM 25 GM TUBE TOP SCH (10:35)
[2021-06-07] MEDS: AMOXICILLIN 50 MG/ML 150 ML/BOTTLE PO SCH ×3 (05:38→21:36)
[2021-06-07 06:14] LABS: Calcium 8.3 MG/DL (8.5-10.1); Potassium 4.5 MMOL/L (3.5-5.1)
[2021-06-07 06:52] LABS: Basophils # 0.1 10*3/uL (0.0-0.2); Eosinophils # 0.3 10*3/uL (0.0-0.87); Eosinophils % 4.3 % (0.00-10.9); Hematocrit 28.2 VOL% (35.7-47.0); Immature Granulocytes % 4.8 %; Lymphocytes # 1.6 10*3/uL (1.4-4.0); Mean Corpuscular HGB Conc 28.4 GM/DL (32-36); Mean Corpuscular Volume 96.6 FL (87-102); Monocytes % 7.9 % (1.7-12.7); Platelet Count 314 T/CUMM (130-400); Red Blood Count 2.92 MC/CUMM (3.8-5.5); Red Cell Distribution Width 16.5 % (9.3-17.3); White Blood Count 6.2 T/CUMM (4-12)
[2021-06-07] MEDS: MEMANTINE 5 MG TABLET PO SCH ×2 (09:50→21:29)
[2021-06-07] MEDS: POTASSIUM CHLORIDE 20 MEQ PACK PO SCH ×2 (09:50→21:29)
[2021-06-07] MEDS: SODIUM HYPOCHLORITE 0.25% IRRIG 473 ML BOTTLE TOP SCH (09:50)
[2021-06-07] MEDS: SILVER SULFADIAZINE 1% CREAM 25 GM TUBE TOP SCH (09:51)
[2021-06-07] MEDS: OMEPRAZOLE ODT 20 MG TABLET PEG SCH (09:52)
[2021-06-07] MEDS: ERTAPENEM 1,000 MG in SODIUM CHLORIDE 0.9% 100 ML IV SCH (09:53)
[2021-06-07] MEDS: PANTOPRAZOLE 40 MG TABLET PO SCH (10:32)
[2021-06-08] MEDS: AMOXICILLIN 50 MG/ML 150 ML/BOTTLE PO SCH ×3 (06:21→22:31)
[2021-06-08 07:12] LABS: Basophils # 0.1 10*3/uL (0.0-0.2); Basophils % 0.6 % (0.0-0.8); Eosinophils # 0.1 10*3/uL (0.0-0.87); Eosinophils % 1.5 % (0.00-10.9); Hematocrit 29.5 VOL% (35.7-47.0); Immature Granulocytes % 4.4 %; Immature Granulocytes Absolute 0.41 #; Lymphocytes # 1.8 10*3/uL (1.4-4.0); Mean Corpuscular HGB Conc 30.5 GM/DL (32-36); Mean Corpuscular Volume 88.6 FL (87-102); Mean Platelet Volume 10.4 FL (9.6-12.0); Monocytes % 5.5 % (1.7-12.7); Platelet Count 549 T/CUMM (130-400); Red Blood Count 3.33 MC/CUMM (3.8-5.5); Red Cell Distribution Width 16.7 % (9.3-17.3); White Blood Count 9.3 T/CUMM (4-12)
[2021-06-08 07:34] LABS: Hypochromasia 1+; Lymphocytes 19 % (20-55); Microcytosis 1+; Polychromasia Slight; Segmented Neutrophils 76 % (50-85); Total Cells Counted 100
[2021-06-08 07:35] LABS: Calcium 8.4 MG/DL (8.5-10.1); Osmolality,Calculated 268.2 MOS/KG (273-304); Potassium 4.2 MMOL/L (3.5-5.1)
[2021-06-08 07:35] LABS: Anisocytosis 1+; Atypical Lymphocytes Few
[2021-06-08] MEDS: SILVER SULFADIAZINE 1% CREAM 25 GM TUBE TOP SCH (09:24)
[2021-06-08] MEDS: OMEPRAZOLE ODT 20 MG TABLET PEG SCH (09:24)
[2021-06-08] MEDS: MEMANTINE 5 MG TABLET PO SCH ×2 (09:24→22:31)
[2021-06-08] MEDS: POTASSIUM CHLORIDE 20 MEQ PACK PO SCH ×2 (09:24→22:31)
[2021-06-08] MEDS: SODIUM HYPOCHLORITE 0.25% IRRIG 473 ML BOTTLE TOP SCH (09:31)
[2021-06-08] MEDS: ERTAPENEM 1,000 MG in SODIUM CHLORIDE 0.9% 100 ML IV SCH (09:31)
[2021-06-08] MEDS ORDERED: SODIUM PHOSPHATE IV ONE (15:15)
[2021-06-08] MEDS ORDERED: SODIUM CHLORIDE 0.9% IV ONE (15:15)
[2021-06-08] MEDS ORDERED: SODIUM PHOSPHATE INJ 15 MMOL in SODIUM CHLORIDE 0.9% 250 ML IV ONE (16:00)
[2021-06-09] MEDS: AMOXICILLIN 50 MG/ML 150 ML/BOTTLE PO SCH ×3 (06:06→21:17)
[2021-06-09 06:33] LABS: Basophils # 0.1 10*3/uL (0.0-0.2); Basophils % 0.7 % (0.0-0.8); Eosinophils # 0.2 10*3/uL (0.0-0.87); Eosinophils % 2.6 % (0.00-10.9); Hematocrit 24.4 VOL% (35.7-47.0); Hemoglobin 7.8 GM/DL (12.0-16.0); Immature Granulocytes % 3.8 %; Immature Granulocytes Absolute 0.28 #; Lymphocytes # 1.6 10*3/uL (1.4-4.0); Lymphocytes % 21.7 % (21.3-54.2); Mean Corpuscular Volume 87.8 FL (87-102); Mean Platelet Volume 10.8 FL (9.6-12.0); Neutrophils % 64.2 % (38.7-73.9); Platelet Count 461 T/CUMM (130-400); Red Blood Count 2.78 MC/CUMM (3.8-5.5); White Blood Count 7.4 T/CUMM (4-12)
[2021-06-09 06:58] LABS: Calcium 7.9 MG/DL (8.5-10.1); Osmolality,Calculated 277.5 MOS/KG (273-304)
[2021-06-09] MEDS: POTASSIUM CHLORIDE 20 MEQ PACK PO SCH ×2 (09:39→21:17)
[2021-06-09] MEDS: OMEPRAZOLE ODT 20 MG TABLET PEG SCH (09:39)
[2021-06-09] MEDS: MEMANTINE 5 MG TABLET PO SCH ×2 (09:39→21:17)
[2021-06-09] MEDS: ERTAPENEM 1,000 MG in SODIUM CHLORIDE 0.9% 100 ML IV SCH (11:52)
[2021-06-09] MEDS: SILVER SULFADIAZINE 1% CREAM 25 GM TUBE TOP SCH (16:11)
[2021-06-09] MEDS: SODIUM HYPOCHLORITE 0.25% IRRIG 473 ML BOTTLE TOP SCH (16:12)
[2021-06-10 06:20] LABS: Basophils # 0.1 10*3/uL (0.0-0.2); Basophils % 0.7 % (0.0-0.8); Eosinophils # 0.2 10*3/uL (0.0-0.87); Eosinophils % 3.2 % (0.00-10.9); Hematocrit 26.3 VOL% (35.7-47.0); Hemoglobin 7.8 GM/DL (12.0-16.0); Immature Granulocytes Absolute 0.29 #; Lymphocytes # 1.5 10*3/uL (1.4-4.0); Lymphocytes % 20.6 % (21.3-54.2); Mean Corpuscular HGB Conc 29.7 GM/DL (32-36); Mean Corpuscular Volume 90.4 FL (87-102); Mean Platelet Volume 10.5 FL (9.6-12.0); Monocytes % 7.7 % (1.7-12.7); Neutrophils % 63.8 % (38.7-73.9); Platelet Count 552 T/CUMM (130-400); Red Blood Count 2.91 MC/CUMM (3.8-5.5); Red Cell Distribution Width 17.2 % (9.3-17.3); White Blood Count 7.3 T/CUMM (4-12)
[2021-06-10 06:52] LABS: Potassium 3.9 MMOL/L (3.5-5.1)
[2021-06-10] MEDS: OMEPRAZOLE ODT 20 MG TABLET PEG SCH (10:08)
[2021-06-10] MEDS: MEMANTINE 5 MG TABLET PO SCH ×2 (10:08→21:22)
[2021-06-10] MEDS: POTASSIUM CHLORIDE 20 MEQ PACK PO SCH ×2 (10:08→21:22)
[2021-06-10] MEDS: ERTAPENEM 1,000 MG in SODIUM CHLORIDE 0.9% 100 ML IV SCH (10:08)
[2021-06-10] MEDS: SILVER SULFADIAZINE 1% CREAM 25 GM TUBE TOP SCH (10:09)
[2021-06-10] MEDS: SODIUM HYPOCHLORITE 0.25% IRRIG 473 ML BOTTLE TOP SCH (10:09)
[2021-06-11 06:01] LABS: Basophils % 0.8 % (0.0-0.8); Eosinophils # 0.3 10*3/uL (0.0-0.87); Hematocrit 24.7 VOL% (35.7-47.0); Hemoglobin 7.2 GM/DL (12.0-16.0); Immature Granulocytes % 4.9 %; Immature Granulocytes Absolute 0.26 #; Lymphocytes # 1.3 10*3/uL (1.4-4.0); Lymphocytes % 24.6 % (21.3-54.2); Mean Corpuscular HGB Conc 29.1 GM/DL (32-36); Mean Corpuscular Volume 89.5 FL (87-102); Mean Platelet Volume 10.2 FL (9.6-12.0); Monocytes % 10.3 % (1.7-12.7); Neutrophils % 53.4 % (38.7-73.9); Platelet Count 554 T/CUMM (130-400); Red Blood Count 2.76 MC/CUMM (3.8-5.5); Red Cell Distribution Width 17.1 % (9.3-17.3); White Blood Count 5.3 T/CUMM (4-12)
[2021-06-11 06:36] LABS: Calcium 7.8 MG/DL (8.5-10.1); Osmolality,Calculated 279.4 MOS/KG (273-304); Potassium 4.1 MMOL/L (3.5-5.1)
[2021-06-11 06:37] LABS: Band Neutrophils 1 % (0-10); Eosinophils 4 % (0-10); Hypochromasia 1+; Lymphocytes 30 % (20-55); Microcytosis 1+; Platelet Estimate Adequate; Segmented Neutrophils 58 % (50-85); Total Cells Counted 100
[2021-06-11] MEDS ORDERED: SODIUM CHLORIDE 0.9% 1,000 ML IV PRN (07:23)
[2021-06-11] MEDS: SILVER SULFADIAZINE 1% CREAM 25 GM TUBE TOP SCH (09:50)
[2021-06-11] MEDS: OMEPRAZOLE ODT 20 MG TABLET PEG SCH (09:50)
[2021-06-11] MEDS: SODIUM HYPOCHLORITE 0.25% IRRIG 473 ML BOTTLE TOP SCH (09:50)
[2021-06-11] MEDS: MEMANTINE 5 MG TABLET PO SCH ×2 (09:51→21:10)
[2021-06-11] MEDS: POTASSIUM CHLORIDE 20 MEQ PACK PO SCH ×2 (09:51→21:10)
[2021-06-11] MEDS: ERTAPENEM 1,000 MG in SODIUM CHLORIDE 0.9% 100 ML IV SCH (13:19)
[2021-06-12 06:12] LABS: Osmolality,Calculated 276.5 MOS/KG (273-304); Potassium 4.3 MMOL/L (3.5-5.1)
[2021-06-12 06:16] LABS: % Iron Saturation 12.6 % (18-50)
[2021-06-12 06:30] LABS: Basophils # 0.1 10*3/uL (0.0-0.2); Basophils % 0.8 % (0.0-0.8); Eosinophils # 0.4 10*3/uL (0.0-0.87); Eosinophils % 5.7 % (0.00-10.9); Immature Granulocytes % 4.7 %; Immature Granulocytes Absolute 0.29 #; Lymphocytes # 1.3 10*3/uL (1.4-4.0); Lymphocytes % 21.3 % (21.3-54.2); Mean Corpuscular Volume 90.1 FL (87-102); Mean Platelet Volume 10.1 FL (9.6-12.0); Neutrophils % 59.5 % (38.7-73.9); Platelet Count 544 T/CUMM (130-400); Red Cell Distribution Width 16.9 % (9.3-17.3); White Blood Count 6.1 T/CUMM (4-12)
[2021-06-12 06:32] LABS: Red Blood Count 3.33 MC/CUMM (3.8-5.5)
[2021-06-12 06:33] LABS: Hemoglobin 9.3 GM/DL (12.0-16.0)
[2021-06-12] MEDS: MEMANTINE 5 MG TABLET PO SCH (09:07)
[2021-06-12] MEDS: POTASSIUM CHLORIDE 20 MEQ PACK PO SCH (09:07)
[2021-06-12] MEDS: SODIUM HYPOCHLORITE 0.25% IRRIG 473 ML BOTTLE TOP SCH (09:07)
[2021-06-12] MEDS: SILVER SULFADIAZINE 1% CREAM 25 GM TUBE TOP SCH (09:08)
[2021-06-12] MEDS: OMEPRAZOLE ODT 20 MG TABLET PEG SCH (09:08)
[2021-06-12] MEDS: ERTAPENEM 1,000 MG in SODIUM CHLORIDE 0.9% 100 ML IV SCH (11:04)
[2021-06-12 12:06] VITALS: BP 118/67
[2021-06-13] MEDS ORDERED: FERROUS SULFATE 325 MG TABLET PO SCH (09:00)
== END 2021-06-12 17:32 | DRG 853 ==
LOC: EDUNIT# → EDBD → N.ED 09:06 → N.EDINP 12:39 → SUATTDRO 12:39 → N.3E 13:39
PROVIDERS: ADMIT Internal Medicine; ATTEND Internal Medicine
PROC: EGDWPEG (ICD-10-PCS; 2021-06-02 11:20)